=== PATIENT | male | born 1960 | race Caucasian/White ===

== ENCOUNTER 2016-06-25 12:30 | Inpatient (IN) | payer MEDICAID ==
--- NOTE | 2016-06-25 12:55 | CPEKG ---
Heart Rate: 90 RR Interval: 667 QRSD Interval: 148 QT Interval: 400 QTC Interval: 490 QRS [place]: -132 T Wave [place]: 65 EKG Severity - ABNORMAL ECG - EKG Impression: A-FLUTTER/FIBRILLATION W/ COMPLETE AV BLOCK EKG Impression: RBBB AND LPFB Electronically Signed By: Zackery Cardenas 25-Jun-2016 15:42:32
--- NOTE | 2016-06-25 12:58 | EDPHY ---
HPI/HX/ROS/PE/MDM Narrative: CHIEF COMPLAINT:Diarrhea, shortness of breath. HPI: The patient is a 56-year-old male with a self-reported history of some sort of congenital heart defect who presents with diarrhea, shortness of breath , malaise, and dry mouth since Sunday (6 days). The diarrhea is described as charcoal-colored alternating with green. This is associated with cough and worsening peripheral edema. He reports intermittent chills throughout the week and has had decreased appetite and PO intake. No fever, vomiting, or other complaints. History is somewhat limited. REVIEW OF SYSTEMS: Aside from elements discussed in the HPI, a comprehensive 10-point review of systems was reviewed and is negative. PMH: Congenital heart defect fixed with surgery, "Stage IV Kidney Disease", "former" diabetes, hip replacement. SOCIAL HISTORY: Former smoker, from [place]. PHYSICAL EXAM: General:Patient is alert, in no acute distress. He has an overall look of likely genetic abnormality with relatively small, abnormal head. ENT:Eyes are normal to inspection. ENT inspection normal. Poor dentition. Neck: Normal inspection. Full range of motion. Respiratory:No respiratory distress. Breath sounds normal bilaterally. Cardiovascular: Regular rate and rhythm. Strong peripheral pulses. Normal cap refill. Abdomen:The abdomen is nontender to palpation. There are no peritoneal signs. There are normal bowel sounds. Back: Normal to inspection. No tenderness to palpation. Skin: Normal color. No rash. Warm and dry. Extremities: Bilateral pedal edema and discoloration. Full range of motion. Neuro: Oriented x3. Normal motor function. Normal sensory function. ED Course: An IV was established and labs ordered. Blood cultures drawn and sent to the lab. EKG and chest x-ray obtained. 1L IV saline administered for hydration. Patient's labwork significant for elevated troponin at .064 and elevated BNP at 299. WBC is normal and his influenza swab returned negative from the lab. BUN and creatinine consistent with kidney disease at 121 and 9.1 respectively. The 12 lead EKG was interpreted by myself. See hard copy and/or "tracemaster" electronic copy for interpretation. Study: PA and Lateral Chest X-ray Indication: Shortness of breath, malaise. Results: I viewed the images myself on the PACS system. My interpretation of the images is: no acute cardiopulmonary process. The radiologist interpretation is pending at the time of this dictation. MDM: This patient presents with a variety of nonspecific complaints. His workup indicates acute renal failure which the patient apparently has had in the past. Additionally his troponin is elevated although I suspect this is likely secondary to the renal failure. His EKG is quite abnormal, but based on the chest x-ray he clearly has abnormal anatomy at baseline, so it is difficult to interpret this. I consulted Dr. Scott Alonzo at 3:00 p.m. and he will admit the patient. The patient's potassium is currently within normal range so I do not think he is high risk for cardiac issues from his renal failure at this time. - Data Points Laboratory Results: Laboratory Results 06/25/16 13:03 06/25/16 13:03 06/25/16 06/25/16 06/25/16 13:35 13:03 13:03 WBC RBC Hgb Hct MCV MCH MCHC RDW Plt Count MPV Neut % (Auto) Lymph % (Auto) [place] % (Auto) Eos % (Auto) Baso % (Auto) Nucleat RBC Rel Count Absolute Neuts (auto) Absolute Lymphs (auto) Absolute Monos (auto) Absolute Eos (auto) Absolute Basos (auto) Absolute Nucleated RBC Immature Gran % Immature Gran # PT INR Sodium 136 mEq/L mEq/L (134-144) Potassium 4.4 mEq/L mEq/L (3.5-5.2) Chloride 95 mEq/L L mEq/L (97-110) Carbon Dioxide 11 mEq/l L mEq/l (22-31) Anion Gap 30 mEq/L H mEq/L (8-16) BUN 121 mg/dL H* mg/dL (7-23) Creatinine 9.1 mg/dL H* mg/dL (0.7-1.3) Estimated GFR 6 Glucose 111 mg/dL H mg/dL (70-100) Calcium 6.7 mg/dL L mg/dL (8.5-10.4) Total Bilirubin 0.6 mg/dL mg/dL (0.1-1.4) Conjugated Bilirubin 0.5 mg/dL mg/dL (0.0-0.5) Unconjugated Bilirubin 0.1 mg/dL mg/dL (0.0-1.1) AST 67 IU/L H IU/L (17-59) ALT 69 IU/L IU/L (21-72) Alkaline Phosphatase 70 IU/L IU/L (38-126) Troponin I 0.064 ng/mL H ng/mL (0-0.034) NT-Pro-B Natriuret Pep 299 pg/mL H pg/mL (0-125) Total Protein 8.0 g/dL g/dL (6.3-8.2) Albumin 4.7 g/dL g/dL (3.5-5.0) Salicylates Pending Influenza Typ A,B (DFA) NEGATIVE FOR FLU (NEGATIVE) 06/25/16 06/25/16 13:03 13:03 WBC 7.49 10^3/uL 10^3/uL (3.80-9.50) RBC 4.93 10^6/uL 10^6/uL (4.40-6.38) Hgb 18.2 g/dL H g/dL (13.7-17.5) Hct 49.9 % % (40.0-51.0) MCV 101.2 fL H fL (81.5-99.8) MCH 36.9 pg H pg (27.9-34.1) MCHC 36.5 g/dL g/dL (32.4-36.7) RDW 13.2 % % (11.5-15.2) Plt Count 98 10^3/uL L 10^3/uL (150-400) MPV 10.6 fL fL (8.7-11.7) Neut % (Auto) 77.0 % H % (39.3-74.2) Lymph % (Auto) 12.3 % L % (15.0-45.0) [place] % (Auto) 10.1 % % (4.5-13.0) Eos % (Auto) 0.0 % L % (0.6-7.6) Baso % (Auto) 0.1 % L % (0.3-1.7) Nucleat RBC Rel Count 0.0 % % (0.0-0.2) Absolute Neuts (auto) 5.76 10^3/uL 10^3/uL (1.70-6.50) Absolute Lymphs (auto) 0.92 10^3/uL L 10^3/uL (1.00-3.00) Absolute Monos (auto) 0.76 10^3/uL 10^3/uL (0.30-0.80) Absolute Eos (auto) 0.00 10^3/uL L 10^3/uL (0.03-0.40) Absolute Basos (auto) 0.01 10^3/uL L 10^3/uL (0.02-0.10) Absolute Nucleated RBC 0.00 10^3/uL 10^3/uL (0-0.01) Immature Gran % 0.5 % % (0.0-1.1) Immature Gran # 0.04 10^3/uL 10^3/uL (0.00-0.10) PT 13.3 SEC SEC (12.0-15.0) INR 1.02 (0.83-1.16) Sodium Potassium Chloride Carbon Dioxide Anion Gap BUN Creatinine Estimated GFR Glucose Calcium Total Bilirubin Conjugated Bilirubin Unconjugated Bilirubin AST ALT Alkaline Phosphatase Troponin I NT-Pro-B Natriuret Pep Total Protein Albumin Salicylates Influenza Typ A,B (DFA) Medications Given: Discontinued Medications Sodium Chloride (Ns) 1,000 mls @ 0 mls/hr IV ONCE ONE PRN Reason: Wide Open Stop: 06/25/16 13:11 Last Admin: 06/25/16 13:40 Dose: 1,000 mls General Time Seen by Provider: 06/25/16 12:54 Initial Vital Signs: Initial Vital Signs Temperature (C) 36.4 C 06/25/16 12:37 Heart Rate 92 06/25/16 12:37 Respiratory Rate 22 H 06/25/16 12:37 Blood Pressure 83/49 L 06/25/16 12:37 O2 Sat (%) 93 06/25/16 12:37 O2 Delivery Mode Room Air Allergies/Adverse Reactions: Penicillins Allergy (Verified 06/25/16 12:41) Home Medications: Medication Instructions Recorded Aspirin EC [Aspirin EC 81 mg (*)] 81 mg PO DAILY 06/25/16 Chlorthalidone [Chlorthalidone 25 25 mg PO DAILY 06/25/16 mg (*)] ENALAPRIL MALEATE 5 mg PO DAILY 06/25/16 Levothyroxine Sodium [Tirosint] 50 mcg PO DAILY 06/25/16 SIMVASTATIN [Zocor] 20 mg PO HS 06/25/16 Departure - Departure Disposition: [facility] Inpatient Acute Clinical Impression: Elevated troponin, Renal failure, Hypocalcemia Condition: Fair Report Scribed for: Norm Valdivia Report Scribed by: Lopez Garcia Date of Report: 06/25/16 Time of Report: 12:57
[2016-06-25] MEDS ORDERED: NS 1,000 ML IV ONE ×2 (13:10→15:50)
[2016-06-25 13:14] LABS: ADD DIFF? NO; ADD MORPH? NO; ADD SCAN? YES; FRAGMENT RBC FLAG 0 (0-99); LEFT SHIFT FLG 0 (0-99); LIPEMIA HEMOLYSIS FLAG 90 (0-99); PLATELET CLUMPS FLAG 0 (0-99)
[2016-06-25 13:17] LABS: % IMMATURE GRANULYOCYTES 0.5 % (0.0-1.1); ABSOLUTE IMMATURE GRANULOCYTES 0.04 10^3/uL (0.00-0.10); HEMATOCRIT 49.9 % (40.0-51.0); HEMOGLOBIN 18.2 g/dL (13.7-17.5); MEAN CELL HEMOGLOBIN 36.9 pg (27.9-34.1); MEAN CELL HEMOGLOBIN CONCENTR. 36.5 g/dL (32.4-36.7); MEAN CELL VOLUME 101.2 fL (81.5-99.8); MEAN PLATELET VOLUME 10.6 fL (8.7-11.7); PLATELET COUNT 98 10^3/uL (150-400); RED BLOOD CELL COUNT 4.93 10^6/uL (4.40-6.38); RED CELL DISTRIBUTION WIDTH 13.2 % (11.5-15.2)
[2016-06-25 13:22] LABS: ATYPICAL LYMPHOCYTE FLAG 180 (0-99)
[2016-06-25 13:23] LABS: INR 1.02 (0.83-1.16); PROTIME(PATIENT) 13.3 SEC (12.0-15.0)
[2016-06-25 13:38] LABS: ALANINE AMINOTRANSFERASE 69 IU/L (21-72); ALBUMIN 4.7 g/dL (3.5-5.0); ALKALINE PHOSPHATASE 70 IU/L (38-126); ANION GAP 30 mEq/L (8-16); ASPARTATE AMINOTRANSFERASE 67 IU/L (17-59); BILIRUBIN,TOTAL 0.6 mg/dL (0.1-1.4); BILIRUBIN-CONJUGATED 0.5 mg/dL (0.0-0.5); BILIRUBIN-UNCONJUGATED 0.1 mg/dL (0.0-1.1); CALCIUM 6.7 mg/dL (8.5-10.4); CARBON DIOXIDE 11 mEq/l (22-31); CHLORIDE 95 mEq/L (97-110); CREATININE 9.1 mg/dL (0.7-1.3); GLOMERULAR FILTRATION RATE 6; GLUCOSE 111 mg/dL (70-100); POTASSIUM 4.4 mEq/L (3.5-5.2); SODIUM 136 mEq/L (134-144)
[2016-06-25 13:50] LABS: SCAN NEGATIVE; TROPONIN I 0.064 ng/mL (0-0.034)
[2016-06-25] MEDS ORDERED: ONDANSETRON 4 MG/2 ML VIAL IVP PRN (16:07)
[2016-06-25] MEDS ORDERED: ACETAMINOPHEN 325 MG TAB PO PRN (16:07)
[2016-06-25 16:17] LABS: SALICYLATE < 1.0 mg/dL (2.0-20.0)
--- NOTE | 2016-06-25 16:53 | GHP ---
[f rep st] HISTORY AND PHYSICAL DATE OF ADMISSION: 06/25/2016 CHIEF COMPLAINT: Diarrhea, shortness of breath, and leg swelling. HPI: This is a 56-year-old male with a history of congenital heart disease and stage 4 chronic kidn ey disease, who presented to the emergency department today with diarrhea, shortness of breath, and leg swelling. The patient states the diarrhea started Sunday and he has been having up to 10 stools per day that a re described as charcoal in color. He denies any recent antibiotic use. He denies any foreign andie el. He denies any sick contacts. He has had some subjective fevers and chills. The patient reports shortness of breath with exertion. He does have orthopnea. He denies any chest pain. He has been having some swelling of his legs. He is on chlorthalidone and lisinopril at [facility], which he has not been taking since Sunday. He denies any NSAID use. He has been making urine. He denies any aspirin use. PAST MEDICAL AND SURGICAL HISTORY: 1. Congenital heart disease requiring corrective surgery in the 1970s. 2. Left total hip arthroplasty. 3. Hypertension. 4. Hypercholesterolemia. 5. Stage 4 chronic kidney disease. 6. Hernia repair. HOME MEDICATIONS: Simvastatin, enalapril, chlorthalidone. ALLERGIES: Penicillin causes nausea and vomiting. SOCIAL HISTORY: Patient is from [place], but moved to [place] to be close to his family 2 years ag o. He smokes occasionally. He denies any current alcohol use or illicit drug use. FAMILY HISTORY: Significant for diabetes mellitus in his mother. REVIEW OF SYSTEMS: Comprehensive 10-point review of systems was done and was negative, except for a s mentioned in the HPI. PHYSICAL EXAM: VITAL SIGNS: Blood pressure 87/51, pulse 74, respiratory rate 15, O2 sat 96% on mica m air, temperature afebrile. GENERAL: Ill-appearing, but no acute distress. HEAD: Normocephalic, atraumatic. EYES: PERRLA. MOUTH: Moist mucous membranes. NECK: Supple. No lymphadenopathy. CARDIOVASCULAR: S1, S2. No JVD. Trace lower extremity edema. PULMONARY: Lungs are clear. No wh eezes, rales, or rhonchi. ABDOMEN: Soft, nontender, nondistended. No guarding or rebound tenderne ss. Normoactive bowel sounds. EXTREMITIES: No clubbing or cyanosis. NEURO: Cranial nerves 2 thr ough 12 grossly intact. No focal motor or sensory deficits. SKIN: There is slight erythema of maximino ateral lower extremities. DIAGNOSTICS: WBC 7.49, hemoglobin 18.2, hematocrit 49.9, platelets 98. PT 13.3, INR 1.02. Sodium 136, potassium 4.4, chloride 95, CO2 of 11, BUN 121, creatinine 9.1, glucose 111, anion gap is 30. AST 67, ALT 69. Troponin indeterminate at 0.064. BNP 299. Influenza negative. Chest x-ray, which I visualized and personally interpreted, shows hyperinflation with a right-sided aortic arch. EKG, which I visualized and personally interpreted, was read by the computer as atrial flutter/fibrillat ion with complete AV block. However, on my review, the rate does appear to be regular and no obviou s P waves, but this could be a result of his congenital heart disease. There is T wave inversion in V1 through V3. There are no pathologic Q waves. No obvious ST elevation. ASSESSMENT AND PLAN: This is a 56-year-old male with history of congenital heart disease and stage 4 chronic kidney disease, presenting with: 1. Diarrhea. 2. Acute kidney injury on reported chronic kidney disease, most likely exacerbated by dehydration a nd hypovolemia in the setting of diarrhea. 3. Anion gap metabolic acidosis, most likely due to uremia. 4. Indeterminate troponin. 5. History of hypertension. 6. History of congenital heart disease with suspected underlying chronic congestive heart failure g iven his orthopnea. PLAN: 1. Admit to telemetry. 2. Check salicylate level. 3. GI pathogen panel to evaluate for underlying cause of diarrhea. 4. Renal ultrasound. 5. Urine lytes to further confirm the diagnosis of prerenal azotemia. 6. Nephrology has been consulted. I have discussed the case with Dr. rGiffith, who has recommended sta rting a bicarbonate drip, which I have ordered. 7. Monitor for signs and symptoms of volume overload in the setting of his suspected underlying con gestive heart failure. 8. Attempt to obtain recent echo results from his primary care provider. 9. Cycle troponins. Patient is high risk and once again will be admitted to telemetry. We will order heparin for DVT pr ophylaxis. He requests to be DNR status and would not be interested in hemodialysis at this time if it were needed to prevent him from dying. /[id number]/MODL
[2016-06-25] MEDS ORDERED: LIDOCAINE 2% JELLY 20 ML (UROJECT) ONE (18:13)
[2016-06-25 18:55] LABS: ANION GAP 21 mEq/L (8-16); CALCIUM 6.1 mg/dL (8.5-10.4); CARBON DIOXIDE 13 mEq/l (22-31); CHLORIDE 102 mEq/L (97-110); CREATININE 6.4 mg/dL (0.7-1.3); GLOMERULAR FILTRATION RATE 9; GLUCOSE 85 mg/dL (70-100); POTASSIUM 3.8 mEq/L (3.5-5.2); SODIUM 136 mEq/L (134-144)
[2016-06-25 19:05] LABS: TROPONIN I 0.048 ng/mL (0-0.034)
[2016-06-25 19:11] LABS: COLOR YELLOW; LEUKOCYTE ESTERASE,URINE NEGATIVE (NEGATIVE); NITRITE,URINE NEGATIVE (NEGATIVE)
[2016-06-25 19:14] LABS: BACTERIA TRACE /hpf (NONE SEEN); MUCUS TRACE /lpf (NONE-1+)
[2016-06-25] MEDS: HEPARIN 5,000 UNIT/0.5 ML SYR SC SCH (21:38)
[2016-06-25] MEDS: SODIUM BICARBONATE 150 MEQ in D5W 1,000 ML IV SCH (21:41)
[2016-06-25] MEDS: VANCOMYCIN 125 MG/2.5 ML UDL PO SCH (21:45)
[2016-06-26 05:00] LABS: % IMMATURE GRANULYOCYTES 0.3 % (0.0-1.1); ABSOLUTE IMMATURE GRANULOCYTES 0.02 10^3/uL (0.00-0.10); ADD DIFF? NO; ADD MORPH? NO; ADD SCAN? YES; FRAGMENT RBC FLAG 0 (0-99); HEMATOCRIT 39.8 % (40.0-51.0); HEMOGLOBIN 14.8 g/dL (13.7-17.5); LEFT SHIFT FLG 0 (0-99); LIPEMIA HEMOLYSIS FLAG 90 (0-99); MEAN CELL HEMOGLOBIN 36.5 pg (27.9-34.1); MEAN CELL HEMOGLOBIN CONCENTR. 37.2 g/dL (32.4-36.7); MEAN PLATELET VOLUME 10.4 fL (8.7-11.7); PLATELET CLUMPS FLAG 20 (0-99); PLATELET COUNT 86 10^3/uL (150-400); RED BLOOD CELL COUNT 4.06 10^6/uL (4.40-6.38); RED CELL DISTRIBUTION WIDTH 12.8 % (11.5-15.2)
[2016-06-26 05:04] LABS: ATYPICAL LYMPHOCYTE FLAG 170 (0-99)
[2016-06-26 05:20] LABS: ANION GAP 14 mEq/L (8-16); CARBON DIOXIDE 18 mEq/l (22-31); CHLORIDE 107 mEq/L (97-110); CREATININE 3.2 mg/dL (0.7-1.3); GLOMERULAR FILTRATION RATE 20; GLUCOSE 145 mg/dL (70-100); POTASSIUM 2.9 mEq/L (3.5-5.2); SODIUM 139 mEq/L (134-144)
[2016-06-26 05:25] LABS: CALCIUM 5.7 mg/dL (8.5-10.4)
[2016-06-26 05:29] LABS: TROPONIN I 0.051 ng/mL (0-0.034)
[2016-06-26 05:31] LABS: SCAN NEGATIVE
[2016-06-26] MEDS: HEPARIN 5,000 UNIT/0.5 ML SYR SC SCH ×3 (05:38→20:57)
[2016-06-26] MEDS: VANCOMYCIN 125 MG/2.5 ML UDL PO SCH ×3 (05:38→15:23)
[2016-06-26] MEDS: SODIUM BICARBONATE 150 MEQ in D5W 1,000 ML IV SCH ×2 (05:39→20:56)
[2016-06-26] MEDS ORDERED: PROTOCOL MAGNESIUM 1 DOSE IV PRN (06:08)
[2016-06-26] MEDS ORDERED: PROTOCOL CALCIUM 1 DOSE IV PRN (06:08)
[2016-06-26] MEDS ORDERED: PROTOCOL POTASSIUM 1 DOSE MISC PRN (06:08)
[2016-06-26] MEDS ORDERED: POTASSIUM CL 10 MEQ TAB PO ONE ×4 (06:17→21:00)
--- NOTE | 2016-06-26 06:24 | CPEKG ---
Heart Rate: 74 RR Interval: 811 QRSD Interval: 156 QT Interval: 432 QTC Interval: 480 P [place]: 0 QRS [place]: 205 T Wave [place]: 51 EKG Severity - ABNORMAL ECG - EKG Impression: COMPLETE AV BLOCK WITH WIDE QRS COMPLEX Electronically Signed By: Russ Juan 26-Jun-2016 07:46:50
[2016-06-26] MEDS ORDERED: LEVOTHYROXINE SODIUM 50 MCG PO SCH (09:00)
--- NOTE | 2016-06-26 09:19 | PDGENHP ---
History and Physical - Chief Complaint RICARDA on CKD - History of Present Illness Mr. Parrish is a 56 yo M with h/o CKD stage IV, HTN, who presented yesterday to ED with complaints of diarrhea. Pt had moved here from [place] 2 years ago to be closer to family. He states he had seen a regulatory services consultant there just before moving, was told he had CKD stage IV, but does not know his baseline Cr. He states he was not interested in HD if needed, had talked about it before and states it would simply take up too much time, would not be interested even if that was the only way to keep him alive. He has not followed up, does see a PCP here at [facility] who has asked him to see a regulatory services consultant but was not interested. Last Sunday, he started to have some flu like symptoms and then started to have signficant diarrhea, over 10-20 BMs daily. In that time, he had hardly been eating or drinking, denies N/V but had no appetite. On presentation, he was hypotensive and noted to have Cr up to 9, already down to 3 with IVFs. History Information - Allergies/Home Medication List Allergies/Adverse Reactions: Penicillins Allergy (Verified 06/25/16 12:41) Home Medications: Aspirin EC [Aspirin EC 81 mg (*)] 81 mg PO DAILY 06/25/16 [Last Taken 06/20/16] Chlorthalidone [Chlorthalidone 25 mg (*)] 25 mg PO DAILY 06/25/16 [Last Taken ] ENALAPRIL MALEATE 5 mg PO DAILY 06/25/16 [Last Taken 06/20/16] Levothyroxine Sodium [Tirosint] 50 mcg PO DAILY 06/25/16 [Last Taken 06/20/16] SIMVASTATIN [Zocor] 20 mg PO HS 06/25/16 [Last Taken 06/20/16] I have personally reviewed and updated: medical history - Past Medical History Additional medical history: Congential heart disease requiring corrective surery at age 10. L total hip arthroplasty. HTN. HLD. CKD stage IV. Hernia repair. h/o DM, managed with diet - Surgical History Additional surgical history: as above - Family History Additional family history: mother with DM - Social History Smoking Status: Current every day smoker Review of Systems ROS: 10pt was reviewed & negative except for what was stated in HPI & below Physical Exam Temp Pulse Resp BP Pulse Ox 37.4 C 84 17 94/51 L 87 L 06/26/16 07:43 06/26/16 07:43 06/26/16 07:43 06/26/16 07:43 06/26/16 07:43 Constitutional: no apparent distress, appears nourished, not in pain Eyes: PERRL, anicteric sclera, EOMI Ears, Nose, Mouth, Throat: moist mucous membranes, hearing normal Cardiovascular: regular rate and rhythym, edema (trace edema BLE) Respiratory: no respiratory distress, clear to auscultation Gastrointestinal: normoactive bowel sounds, soft, non-tender abdomen Skin: warm, other (venostasis changes in lower extremities), No rash Musculoskeletal: no muscle tenderness, normal joint ROM Neurologic: AAOx3, CN II-XII Intact, No asterixes Psychiatric: interacting appropriately, not anxious, not encephalopathic Lab Data & Imaging Review 06/26/16 04:36 06/26/16 04:36 WBC 5.98 10^3/uL (3.80-9.50) 06/26/16 04:36 RBC 4.06 10^6/uL (4.40-6.38) L 06/26/16 04:36 Hgb 14.8 g/dL (13.7-17.5) 06/26/16 04:36 Hct 39.8 % (40.0-51.0) L D 06/26/16 04:36 MCV 98.0 fL (81.5-99.8) 06/26/16 04:36 MCH 36.5 pg (27.9-34.1) H 06/26/16 04:36 MCHC 37.2 g/dL (32.4-36.7) H 06/26/16 04:36 RDW 12.8 % (11.5-15.2) 06/26/16 04:36 Plt Count 86 10^3/uL (150-400) L 06/26/16 04:36 MPV 10.4 fL (8.7-11.7) 06/26/16 04:36 Neut % (Auto) 73.4 % (39.3-74.2) 06/26/16 04:36 Lymph % (Auto) 15.2 % (15.0-45.0) 06/26/16 04:36 [place] % (Auto) 10.9 % (4.5-13.0) 06/26/16 04:36 Eos % (Auto) 0.0 % (0.6-7.6) L 06/26/16 04:36 Baso % (Auto) 0.2 % (0.3-1.7) L 06/26/16 04:36 Nucleat RBC Rel Count 0.0 % (0.0-0.2) 06/26/16 04:36 Absolute Neuts (auto) 4.39 10^3/uL (1.70-6.50) 06/26/16 04:36 Absolute Lymphs (auto) 0.91 10^3/uL (1.00-3.00) L 06/26/16 04:36 Absolute Monos (auto) 0.65 10^3/uL (0.30-0.80) 06/26/16 04:36 Absolute Eos (auto) 0.00 10^3/uL (0.03-0.40) L 06/26/16 04:36 Absolute Basos (auto) 0.01 10^3/uL (0.02-0.10) L 06/26/16 04:36 Absolute Nucleated RBC 0.00 10^3/uL (0-0.01) 06/26/16 04:36 Immature Gran % 0.3 % (0.0-1.1) 06/26/16 04:36 Immature Gran # 0.02 10^3/uL (0.00-0.10) 06/26/16 04:36 PT 13.3 SEC (12.0-15.0) 06/25/16 13:03 INR 1.02 (0.83-1.16) 06/25/16 13:03 Sodium 139 mEq/L (134-144) 06/26/16 04:36 Potassium 2.9 mEq/L (3.5-5.2) L 06/26/16 04:36 Chloride 107 mEq/L (97-110) 06/26/16 04:36 Carbon Dioxide 18 mEq/l (22-31) L 06/26/16 04:36 Anion Gap 14 mEq/L (8-16) 06/26/16 04:36 BUN 84 mg/dL (7-23) H 06/26/16 04:36 Creatinine 3.2 mg/dL (0.7-1.3) H 06/26/16 04:36 Estimated GFR 20 06/26/16 04:36 Glucose 145 mg/dL (70-100) H 06/26/16 04:36 Calcium 5.7 mg/dL (8.5-10.4) L* 06/26/16 04:36 Magnesium 2.1 mg/dL (1.6-2.3) 06/26/16 04:36 Total Bilirubin 0.6 mg/dL (0.1-1.4) 06/25/16 13:03 Conjugated Bilirubin 0.5 mg/dL (0.0-0.5) 06/25/16 13:03 Unconjugated Bilirubin 0.1 mg/dL (0.0-1.1) 06/25/16 13:03 AST 67 IU/L (17-59) H 06/25/16 13:03 ALT 69 IU/L (21-72) 06/25/16 13:03 Alkaline Phosphatase 70 IU/L (38-126) 06/25/16 13:03 Troponin I 0.051 ng/mL (0-0.034) H 06/26/16 04:36 NT-Pro-B Natriuret Pep 299 pg/mL (0-125) H 06/25/16 13:03 Total Protein 8.0 g/dL (6.3-8.2) 06/25/16 13:03 Albumin 4.7 g/dL (3.5-5.0) 06/25/16 13:03 Urine Color YELLOW 06/25/16 18:25 Urine Appearance CLEAR 06/25/16 18:25 Urine pH 5.0 (5.0-7.5) 06/25/16 18:25 Ur Specific [place] 1.010 (1.002-1.030) 06/25/16 18:25 Urine Protein 1+ (NEGATIVE) H 06/25/16 18:25 Urine Ketones TRACE (NEGATIVE) H 06/25/16 18:25 Urine Blood NEGATIVE (NEGATIVE) 06/25/16 18:25 Urine Nitrate NEGATIVE (NEGATIVE) 06/25/16 18:25 Urine Bilirubin NEGATIVE (NEGATIVE) 06/25/16 18:25 Urine Urobilinogen NEGATIVE EU (0.2-1.0) 06/25/16 18:25 Ur Leukocyte Esterase NEGATIVE (NEGATIVE) 06/25/16 18:25 Urine RBC 1-3 /hpf (0-3) 06/25/16 18:25 Urine WBC 1-3 /hpf (0-3) 06/25/16 18:25 Ur Epithelial Cells TRACE /lpf (NONE-1+) 06/25/16 18:25 Urine Bacteria TRACE /hpf (NONE SEEN) H 06/25/16 18:25 Hyaline Casts 5-15 /lpf (0-1) 06/25/16 18:25 Urine Mucus TRACE /lpf (NONE-1+) 06/25/16 18:25 Urine Osmolality 347 mosmo/kg (300-900) 06/25/16 18:25 Ur Random Creatinine 93.5 mg/dL 06/25/16 18:25 Ur Random Sodium 53 mEq/L (30-90) 06/25/16 18:25 Urine Glucose NEGATIVE (NEGATIVE) 06/25/16 18:25 Salicylates < 1.0 mg/dL (2.0-20.0) L 06/25/16 13:03 Influenza Typ A,B (DFA) NEGATIVE FOR FLU (NEGATIVE) 06/25/16 13:35 Assessment & Plan Assessment: Assessment/Plan: RICARDA on CKD stage IV: unknown baseline. Cr 9.1 on presentation, down to 3.2 already with fluids, likely prerenal injury with diarrhea and poor po intake. - Continue IVFs with bicarb for now. - Agree with holding chlorthalidone and ACEI for now. - No need for HD at this time. That being said, pt is not interested in HD or f/u with regulatory services consultant at this time, will continue to discuss with him. - Avoid MOM, morphine, demerol, NSAIDs, contrast, aminoglycosides, fleets, and other nephrotoxins. - I discussed with pt to avoid NSAID use with his kidney disease. - Will continue to monitor renal parameters. Hypokalemia: likely secondary to diarrhea as well as correction of acidosis. - Pt given KCl 40meq x1 this am. - Would recheck today before giving additional supplementation. Metabolic acidosis: likely due to RICARDA as well as bicarb losses from diarrhea. Bicarb improved from 11 to 18. - Continue IVFs with bicarb. - Will continue to monitor. Hypotension: likely secondary to intravascular depletion, agree with holding antihypertensive medications for now and giving IVFs. Thank you for the interesting consult. Nephrology will continue to follow, please call if you have any additional questions or concerns.
[2016-06-26] MEDS: LEVOTHYROXINE 50 MCG TAB PO SCH (09:58)
[2016-06-26 10:28] LABS: IONIZED CALCIUM 0.83 MMOL/L (1.12-1.30)
[2016-06-26] MEDS ORDERED: CALCIUM GLUCONATE 2 GM in NS 50 ML IV ONE (11:57)
--- NOTE | 2016-06-26 15:45 | HOSPPROG ---
Hospitalist Progress Note Assessment/Plan: * Acute on chronic renal failure * prerenal on top of chronic kidney disease * creatinine better with fluids * acute diarrheal illness * C. diff along with enteropathogenic e.coli * discussed with Infectious Disease - difficult to determine which is causing his illness. no recent antibiotics or hospitalizations. * Infectious Disease will see patient * mild troponin elevation * due to renal failure * thrombocytopenia * question chronic * history of congenital heart disease status post surgery Subjective: still having diarrhea. Objective: Vital Signs Temp Pulse Resp BP Pulse Ox 37.4 C 84 17 94/51 L 87 L 06/26/16 07:43 06/26/16 07:43 06/26/16 07:43 06/26/16 07:43 06/26/16 07:43 Microbiology 06/26/16 14:15 Fecal Leukocyte Stain - Final Stool 06/25/16 18:00 Gastrointestinal Tract Panel (PCR) - Final Stool Clostridium Difficile Detected E.coli Enteropathogenic(Epec) Laboratory Results 06/26/16 04:36 06/26/16 04:36 06/25/16 06/26/16 06/27/16 05:59 05:59 05:59 Intake Total 3550 Output Total 1750 Balance 1800 PT 13.3 SEC (12.0-15.0) 06/25/16 13:03 INR 1.02 (0.83-1.16) 06/25/16 13:03 - Physical Exam Constitutional: no apparent distress, appears nourished, not in pain Eyes: anicteric sclera, EOMI Ears, Nose, Mouth, Throat: moist mucous membranes, hearing normal Cardiovascular: regular rate and rhythym, no murmur, rub, or gallop Respiratory: no respiratory distress, no rales or rhonchi, clear to auscultation Gastrointestinal: normoactive bowel sounds, soft, non-tender abdomen, no palpable masses Skin: warm Neurologic: AAOx3 Psychiatric: interacting appropriately, not anxious, not encephalopathic, thought process linear ICD10 Worksheet Patient Problems: Problems Problem Status Onset Elevated troponin Acute Hypocalcemia Acute Renal failure Acute
[2016-06-26 18:22] LABS: POTASSIUM 3.1 mEq/L (3.5-5.2)
--- NOTE | 2016-06-27 03:01 | GCON ---
[f rep st] CONSULTATION REFERRING PHYSICIAN: Chaparro Helms MD REASON FOR REFERRAL: Diarrhea with positive stool PCR findings. HISTORY OF PRESENT ILLNESS: Patient is a 56-year-old male, who [facility], through the emergency room secondary to severe dehydration and acute renal failu re. The patient moved here to [place] from [facility] a couple of years ago. He knew when he w as in [facility] that he had chronic renal disease, but refused specialty care at that point. Lenin paniagua was seen at [facility] here in [place] and also was recommended for renal evaluation, which he refuse d. Apparently, the patient began feeling slightly chilled and ill 1 week ago. He began having diar iesha, which waxed and waned, but became fairly profuse by the end of the week. He was unable to mely p up with oral intake of fluids, and was brought into [facility] emergency room yester day. The patient had laboratory work done, which showed evidence of hemoconcentration, but no clear leukocytosis. The patient also had serum chemistries done, which showed a creatinine of 9.1 on adm ission. This has since recovered down to a creatinine of 3.2 with hydration. The patient was negat dereck for influenza. Stool PCR was done on 06/25/2016, which showed both C difficile as well as E col i enteropathogenic subtype. We are consulted to help determine the significance of these findings. The patient denies any abdominal pain. He continues to have 15 to 20 stools today per. PAST MEDICAL HISTORY: 1. Chronic kidney disease, not yet worked up. 2. Congenital heart disease requiring corrective surgery. 3. Hypertension. 4. Hyperlipidemia. PAST SURGICAL HISTORY: 1. Status post remote corrective cardiac surgery as a child. 2. Status post left total hip arthroplasty. 3. Status post hernia repair. ANTIBIOTICS: Oral vancomycin. ALLERGIES: Penicillin. SOCIAL HISTORY: Patient is from [place], [place], but moved to [place] 2 years ago. He u ses occasional cigarettes. Denies any alcohol or drug use. FAMILY HISTORY: Reviewed but noncontributory. REVIEW OF SYSTEMS: Other than that detailed above in history of present illness comprehensive 10-sy stem review is negative. PHYSICAL EXAMINATION: VITAL SIGNS: Temperature maximum is 37, temp current is 37, 2. Heart rate i s 74, respiratory rate is 16, blood pressure is 99/57. GENERAL: The patient is a well-formed, well -nourished, middle-aged male in no acute distress. He is not toxic in appearance. He is alert and oriented x3. He has a pleasant demeanor. HEENT: Normocephalic for age. Atraumatic. No scleral i cterus. No oral lesion or drainage from the nares. Eyes: Lids and conjunctivae within normal limi ts. Pupils are equal and round bilaterally. NECK: Supple. No meningismus. LUNGS: Clear to ausc ultation bilaterally with good effort. HEART: Regular rate and rhythm. No murmur, rub, or gallop noted. ABDOMEN: Soft. Nontender. No masses. SKIN: Warm and dry to the touch. No rash or lesio n seen. MUSCULOSKELETAL: No muscle tenderness is noted. No joint line effusion or arthritis is se en. NEURO: Cranial nerves 2 through 12 seem to be intact. Peripheral sensation seems intact in th e extremities. LABORATORY DATA: The patient's CBC dated 06/28/2016, shows a white blood cell count of 5.98, hemogl obin of 14.8, hematocrit 39.8, platelet count of 86. Differential shows 73% segmented neutrophils, 15% lymphocytes, and 11% monocytes. Serum chemistries on 06/26/2016, show a sodium of 139, potassiu m of 2.9, chloride of 107, bicarbonate of 18, BUN of 84, creatinine of 3.2. Urinalysis is within no rmal limits. Influenza DFA is negative. MICROBIOLOGIC DATA: The patient has stool for multiplex PCR showing C difficile, as well as intrapa thogenic E coli. Fecal leukocyte stain is negative. ASSESSMENT: Diarrhea, unclear etiology. Infectious etiology is possible, although noninfectious et iology should be included in the differential at this point, too. The multiplex PCR obviously finds the presence of organisms which may or may not be responsible for the pathology. Clostridium diffi cile is present in the patient's stool sample, although lack of leukocytosis and lack of white blood cells in the stool would argue against this being Clostridium difficile colitis. He also has no an tecedent antibiotic use, which would be a major risk factor. Enteropathogenic Escherichia coli is t ypically seen as cause of illness in small children. It has been described in adults, but is not pa rticularly virulent. It is a self-limited disease and does not warrant antibiotic treatment. It is unclear whether this is truly the pathogen in this case, although it may be. Absent that, I do not have any other infectious explanations for what could be transpired. Typical causes of viral gastr oenteritis would likely be picked up in the multiplex PCR. Will continue to give patient supportive care, but I suspect we could probably discontinue the oral vancomycin at this point. PLAN: 1. Discontinue oral vancomycin. 2. Follow clinical course. /[id number]/MODL
[2016-06-27 04:33] LABS: IONIZED CALCIUM 0.89 MMOL/L (1.12-1.30)
[2016-06-27 04:39] LABS: % IMMATURE GRANULYOCYTES 0.5 % (0.0-1.1); ABSOLUTE IMMATURE GRANULOCYTES 0.03 10^3/uL (0.00-0.10); ADD DIFF? NO; ADD MORPH? NO; ADD SCAN? YES; FRAGMENT RBC FLAG 0 (0-99); HEMATOCRIT 40.9 % (40.0-51.0); HEMOGLOBIN 14.8 g/dL (13.7-17.5); LEFT SHIFT FLG 0 (0-99); LIPEMIA HEMOLYSIS FLAG 90 (0-99); MEAN CELL HEMOGLOBIN 35.5 pg (27.9-34.1); MEAN CELL HEMOGLOBIN CONCENTR. 36.2 g/dL (32.4-36.7); MEAN CELL VOLUME 98.1 fL (81.5-99.8); MEAN PLATELET VOLUME 10.4 fL (8.7-11.7); PLATELET CLUMPS FLAG 0 (0-99); PLATELET COUNT 86 10^3/uL (150-400); RED BLOOD CELL COUNT 4.17 10^6/uL (4.40-6.38); RED CELL DISTRIBUTION WIDTH 12.6 % (11.5-15.2)
[2016-06-27 04:49] LABS: ATYPICAL LYMPHOCYTE FLAG 180 (0-99)
[2016-06-27 04:50] LABS: ANION GAP 5 mEq/L (8-16); CARBON DIOXIDE 38 mEq/l (22-31); CHLORIDE 100 mEq/L (97-110); GLUCOSE 192 mg/dL (70-100); POTASSIUM 3.1 mEq/L (3.5-5.2); SODIUM 143 mEq/L (134-144)
[2016-06-27 04:51] LABS: CALCIUM 6.5 mg/dL (8.5-10.4); GLOMERULAR FILTRATION RATE > 60; MAGNESIUM 1.9 mg/dL (1.6-2.3)
[2016-06-27 05:21] LABS: SCAN NEGATIVE
[2016-06-27] MEDS ORDERED: POTASSIUM CL 10 MEQ TAB PO ONE ×2 (05:45→20:36)
[2016-06-27] MEDS: LEVOTHYROXINE 50 MCG TAB PO SCH (06:32)
[2016-06-27] MEDS: SODIUM BICARBONATE 150 MEQ in D5W 1,000 ML IV SCH (06:35)
[2016-06-27] MEDS ORDERED: CALCIUM GLUCONATE 2 GM in NS 50 ML IV ONE (06:54)
[2016-06-27] MEDS: HEPARIN 5,000 UNIT/0.5 ML SYR SC SCH ×2 (07:21→14:43)
--- NOTE | 2016-06-27 14:23 | HOSPPROG ---
Hospitalist Progress Note Assessment/Plan: * Acute on ?chronic renal failure * creatinine down down to 1 * not sure of diagnosis of chronic kidney disease * will Fluids today * acute diarrheal illness * C. diff along with enteropathogenic e.coli * infectious Disease input appreciated. vancomycin discontinued. will watch off antibiotics * diarrhea seem to be better * mild troponin elevation * due to renal failure * thrombocytopenia * question chronic * history of congenital heart disease status post surgery Subjective: seems to be feeling better. Diarrhea seems to be better overnight Objective: Vital Signs Temp Pulse Resp BP Pulse Ox 36.9 C 66 18 101/58 L 94 06/27/16 11:38 06/27/16 11:38 06/27/16 11:38 06/27/16 11:38 06/27/16 11:38 Microbiology 06/26/16 14:15 Fecal Leukocyte Stain - Final Stool Laboratory Results 06/27/16 04:24 06/27/16 04:24 06/26/16 06/27/16 06/28/16 05:59 05:59 05:59 Intake Total 3550 2250 70 Output Total 1750 5 Balance 1800 225 70 PT 13.3 SEC (12.0-15.0) 06/25/16 13:03 INR 1.02 (0.83-1.16) 06/25/16 13:03 - Physical Exam Constitutional: no apparent distress, appears nourished, not in pain Eyes: anicteric sclera, EOMI Ears, Nose, Mouth, Throat: moist mucous membranes, hearing normal Cardiovascular: regular rate and rhythym Gastrointestinal: normoactive bowel sounds, soft, non-tender abdomen, no palpable masses Neurologic: AAOx3 Psychiatric: interacting appropriately, not anxious, not encephalopathic, thought process linear ICD10 Worksheet Patient Problems: Problems Problem Status Onset C. difficile diarrhea Acute ~06/25/16 Elevated troponin Acute Hypocalcemia Acute Renal failure Acute
--- NOTE | 2016-06-27 14:56 | SOAPPROG ---
SOAP Progress Note Assessment/Plan: Assessment: RICARDA resolved Plan: Renal signing off 06/27/16 14:54 Subjective: Spirits good denies pain nausea vomiting or SOB Objective: Vital Signs Temp Pulse Resp BP Pulse Ox 36.9 C 66 18 101/58 L 94 06/27/16 11:38 06/27/16 11:38 06/27/16 11:38 06/27/16 11:38 06/27/16 11:38 Microbiology 06/26/16 14:15 Fecal Leukocyte Stain - Final Stool Laboratory Results 06/27/16 04:24 06/27/16 04:24 06/26/16 06/27/16 06/28/16 05:59 05:59 05:59 Intake Total 3550 2250 70 Output Total 1750 2025 Balance 1800 225 70 PT 13.3 SEC (12.0-15.0) 06/25/16 13:03 INR 1.02 (0.83-1.16) 06/25/16 13:03 Physical Exam - Physical Exam General Appearance: alert Respiratory: No rales, No rhonchi Cardiac/Chest: regular rate, rhythm, No edema, No gallop, No friction rub Abdomen: other (bs+, nt, nd) Neuro/Psych: alert, normal mood/affect, oriented x 3 ICD10 Worksheet Patient Problems: Problems Problem Status Onset C. difficile diarrhea Acute ~06/25/16 Elevated troponin Acute Hypocalcemia Acute Renal failure Acute
[2016-06-27 20:34] LABS: POTASSIUM 3.4 mEq/L (3.5-5.2)
[2016-06-28 04:32] LABS: IONIZED CALCIUM 0.97 MMOL/L (1.12-1.30)
[2016-06-28 04:54] LABS: CHLORIDE 95 mEq/L (97-110); CREATININE 0.8 mg/dL (0.7-1.3); GLOMERULAR FILTRATION RATE > 60; GLUCOSE 121 mg/dL (70-100); MAGNESIUM 1.7 mg/dL (1.6-2.3); POTASSIUM 4.4 mEq/L (3.5-5.2); SODIUM 145 mEq/L (134-144)
[2016-06-28 05:01] LABS: SPECIMEN HEMOLYSIS 125
[2016-06-28 05:02] LABS: ANION GAP 9 mEq/L (8-16); CARBON DIOXIDE 41 mEq/l (22-31)
[2016-06-28] MEDS: LEVOTHYROXINE 50 MCG TAB PO SCH (05:32)
[2016-06-28 05:38] LABS: % IMMATURE GRANULYOCYTES 0.3 % (0.0-1.1); ABSOLUTE IMMATURE GRANULOCYTES 0.02 10^3/uL (0.00-0.10); ADD DIFF? NO; ADD MORPH? NO; ADD SCAN? YES; FRAGMENT RBC FLAG 0 (0-99); HEMATOCRIT 51.7 % (40.0-51.0); HEMOGLOBIN 18.1 g/dL (13.7-17.5); LEFT SHIFT FLG 0 (0-99); LIPEMIA HEMOLYSIS FLAG 90 (0-99); MEAN CELL HEMOGLOBIN 36.6 pg (27.9-34.1); MEAN CELL VOLUME 104.7 fL (81.5-99.8); MEAN PLATELET VOLUME 10.2 fL (8.7-11.7); PLATELET CLUMPS FLAG 10 (0-99); PLATELET COUNT 108 10^3/uL (150-400); RED BLOOD CELL COUNT 4.94 10^6/uL (4.40-6.38); RED CELL DISTRIBUTION WIDTH 12.9 % (11.5-15.2)
[2016-06-28 05:40] LABS: ATYPICAL LYMPHOCYTE FLAG 240 (0-99)
[2016-06-28 06:06] LABS: SCAN NEGATIVE
[2016-06-28] MEDS ORDERED: MAGNESIUM SULF 1 GM/DEXTROSE 100 ML IV ONE (07:21)
[2016-06-28] MEDS ORDERED: CALCIUM GLUCONATE 50 ML IV ONE (07:21)
[2016-06-28] MEDS: ENOXAPARIN 40 MG/0.4 ML SYR SC SCH (07:52)
--- NOTE | 2016-06-28 16:38 | GDS ---
DISCHARGE DIAGNOSES: 1. Diarrheal illness. 2. Positive Clostridium difficile and Escherichia coli enteropathic PCR, probably not causing his d iarrhea. 3. Probable chronic hypoxic respiratory failure. 4. Possible pulmonary hypertension. 5. Chronic obstructive pulmonary disease. 6. Acute renal failure, secondary to dehydration. HISTORY: This is a 56-year-old male, who did not get much regular medical care, who has a history o f hypertension and also hyperlipidemia, and hypothyroidism. This is a 56-year-old male who does not get a lot of medical care. He presented with severe diarrhea for a week, and was found to have a c reatinine of 9. HOSPITAL COURSE: I was going to give IV fluids. Nephrology was consulted. His creatinine actually improved pretty well, and is now at 0.8. There was some notation of possible chronic kidney diseas e, but he did not seem to have at this point. His stool was positive for C. difficile, as well as e nteropathic E. coli. He was initially treated with vancomycin. Infectious Disease consultation was obtained to sort out which may be causing his disease. They believed that the C. difficile was not the cause of his diarrhea, and enteropathic E. coli, if treated, could make things worse, and so we elected not to treat anything, and discontinue the vancomycin. His diarrhea actually did improve. On day of discharge, his oxygen saturation was 70% on room air. I intended to get a chest x-ray, as well as echocardiogram, as I suspect pulmonary hypertension and untreated COPD. He does have polyc ythemia. However, the patient was adamant that he wanted to leave against medical advice. This pat ient was told that he has high risk of needing to come back and be rehospitalized, or even worse. Lenin paniagua is adamant that he wants to leave, and does not want any home oxygen, although that was ordered fo r him. If he were to take home oxygen, he would not need to sign out against medical advice, but he refuses that. TIME SPENT: Greater than 30 minutes was spent on discharge. /[id number]/MODL
[2016-06-28] MEDS: TIOTROPIUM INHALER 18 MCG/DOSE 5 DOSE/MDI IH SCH (18:12)
[2016-06-28] MEDS: FLUTICASONE/SALMETER 100/50MCG DISKUS IH SCH (22:06)
[2016-06-29] MEDS: LEVOTHYROXINE 50 MCG TAB PO SCH (05:14)
[2016-06-29 05:27] LABS: IONIZED CALCIUM 1.03 MMOL/L (1.12-1.30)
[2016-06-29 05:43] LABS: % IMMATURE GRANULYOCYTES 0.6 % (0.0-1.1); ABSOLUTE IMMATURE GRANULOCYTES 0.03 10^3/uL (0.00-0.10); ADD DIFF? NO; ADD MORPH? NO; ADD SCAN? YES; FRAGMENT RBC FLAG 0 (0-99); HEMATOCRIT 45.9 % (40.0-51.0); LEFT SHIFT FLG 0 (0-99); LIPEMIA HEMOLYSIS FLAG 90 (0-99); MEAN CELL HEMOGLOBIN 36.5 pg (27.9-34.1); MEAN CELL HEMOGLOBIN CONCENTR. 34.9 g/dL (32.4-36.7); MEAN CELL VOLUME 104.8 fL (81.5-99.8); MEAN PLATELET VOLUME 10.2 fL (8.7-11.7); PLATELET CLUMPS FLAG 0 (0-99); PLATELET COUNT 127 10^3/uL (150-400); RED BLOOD CELL COUNT 4.38 10^6/uL (4.40-6.38); RED CELL DISTRIBUTION WIDTH 12.6 % (11.5-15.2)
[2016-06-29 05:46] LABS: ATYPICAL LYMPHOCYTE FLAG 300 (0-99)
[2016-06-29 05:52] LABS: ANION GAP 6 mEq/L (8-16); CALCIUM 8.3 mg/dL (8.5-10.4); CARBON DIOXIDE 36 mEq/l (22-31); CHLORIDE 97 mEq/L (97-110); CREATININE 0.8 mg/dL (0.7-1.3); GLOMERULAR FILTRATION RATE > 60; GLUCOSE 122 mg/dL (70-100); MAGNESIUM 1.8 mg/dL (1.6-2.3); POTASSIUM 4.1 mEq/L (3.5-5.2); SODIUM 139 mEq/L (134-144)
[2016-06-29 06:22] LABS: SCAN NEGATIVE
[2016-06-29] MEDS: TIOTROPIUM INHALER 18 MCG/DOSE 5 DOSE/MDI IH SCH (08:23)
[2016-06-29] MEDS: FLUTICASONE/SALMETER 100/50MCG DISKUS IH SCH (08:23)
[2016-06-29 08:30] VITALS: RESP 16; O2SAT 93
[2016-06-29] MEDS: ENOXAPARIN 40 MG/0.4 ML SYR SC SCH (08:39)
[2016-06-29 11:45] VITALS: BP 110/72; PULSE 59; TEMP 97.9
--- NOTE | 2016-06-29 13:28 | ECHO ---
[id number] + + [address] : : [place] [address] : : [phone] + + Adult Echocardiographic Report + -------+ :Name: DAREK ABEL FStudy Date: 06/29/2016 10:03 AM : : Hospital Admission Number: [id number] Locati on: 216: :: 1960 Gender: Male Height: 62 in : :Age: 56 yrs Race: WH Weight: 118 lb : :Reason For Study: Eval for Pulmonary Hypertension : : BSA: 1.5 meter s2 : :History: C-Diff, COPD, Renal Failure : + -------+ MMode/2D Measurements \T\ Calculations IVSd: 0.86 cm LVIDd: 4.8 cm FS: 37.8 % Ao root diam: 3.6 cm LVPWd: 0.88 cm LVIDs: 3.0 cm EDV(Teich): 105.2 ml ACS: 1.6 cm ESV(Teich): 33.8 ml EF(Teich): 67.9 % Normal Measurement Values: + + :LVIDd (3.5-5.7cm) IVSd (0.6-1.1cm) LVPWd (0.6-1.1cm) Aortic Root (2.0-3.7cm)Left Atrium (1.5-4.0cm): :LV Vol(d) (76-115ml) LV Vol(s) (29-48ml) Ejec Fraction (50-65%)PV Con (0.6- 1.2m/s) TV Con (0.4-1.0m/s) : :MV E Con (0.8-1.0m/s)MV A Con (0.3-1.0m/s)LVOT Con (0.7-1.2m/s) Asc Ao Con ( 0.9-1.8m/s) : + + Doppler Measurements \T\ Calculations MV E max con: Ao V2 max: LV V1 max: PA V2 max: 43.9 cm/sec 119.4 cm/sec 52.8 cm/sec 162.9 cm/sec MV A max con: Ao max P.7 mmHgLV V1 max PG: PA max P.2 cm/sec 1.1 mmHg 10.6 mmHg MV E/A: 0.75 PI end-d con: TR max con: 95.0 cm/sec 304.1 cm/sec TR max P.0 mmHg RAP systole: 5.0 mmHg RVSP(TR): 42.0 mmHg Left Ventricle The left ventricle is normal in size. There is normal left ventricular wall thickness. The left ventricular ejection fraction is normal. Ejection Fraction = 68%. There is Doppler evidence for diastolic dysfunction. The left ventricular wall motion is normal. Right Ventricle The right ventricle is normal size. Atria The left atrial size is normal. Right atrial size is normal. Mitral Valve The mitral valve is normal in structure and function. There is no mitral valve stenosis. There is no mitral regurgitation noted. Tricuspid Valve There is trace to mild tricuspid regurgitation. Right ventricular systolic pressure is 42mmHg. There is Doppler evidence for mild pulmonary hypertension. Aortic Valve The aortic valve is trileaflet. There is no aortic stenosis. There is no aortic insufficiency. Pulmonic Valve The pulmonic valve is normal in structure and function. There is no pulmonic valvular regurgitation. Great Vessels The aortic root is normal size. Pericardium/Pleural There is a fat pad seen. Conclusion A complete two-dimensional transthoracic echocardiogram was performed (2D, M-mode, Doppler and color flow Doppler). The left ventricular ejection fraction is normal. There is normal left ventricular wall thickness. Ejection Fraction = 68%. The left ventricular wall motion is normal. There is Doppler evidence for diastolic dysfunction. The right ventricle is normal size. The left atrial size is normal. Normal appearing valvular structures. There is no mitral regurgitation noted. There is trace to mild tricuspid regurgitation. There is Doppler evidence for mild pulmonary hypertension. Right ventricular systolic pressure is 42mmHg. The aortic root is normal size. There is a fat pad seen. Final Reading Physician: Gregorio Johnson signed on 06/29/2016 01:27 PM Ordering Physician: Chaparro Helms Performed By: Lloyd Bates, CS
--- NOTE | 2016-06-29 14:41 | PDIAF ---
- Diagnosis Diagnosis: acute renal failure Code Status: Do Not Resuscitate - Medication Management Discharge Medications: Medications to Continue on Transfer Aspirin EC [Aspirin EC 81 mg (*)] 81 mg PO DAILY 06/25/16 [Last Taken 06/20/16] ENALAPRIL MALEATE 5 mg PO DAILY 06/25/16 [Last Taken 06/20/16] Levothyroxine Sodium [Tirosint] 50 mcg PO DAILY 06/25/16 [Last Taken 06/20/16] SIMVASTATIN [Zocor] 20 mg PO HS 06/25/16 [Last Taken 06/20/16] Fluticasone/Salmeter 100/50Mcg [Advair 100/50 (*)] 1 puffs IH BID #1 disk [Last Taken Unknown] Tiotropium Inhaler [Spiriva Handihaler] 18 mcg IH DAILY #1 mdi 06/28/16 [Last Taken Unknown] Discharge Medications: Refer to the Discharge Home Medication list for PRN reason. - Orders Services needed: Home Care, Registered Nurse, Physical Therapy, Occupational Therapy Home Care Face to Face: I certify that this patient was under my care and that I had the required [id number] encounter meeting the encounter requirements on the discharge day. My findings support the fact that the patient is homebound as defined in CMS Chapter 7 Medicare Benefits Manual 30.1.1, The condition of the patient is such that there exists a normal inability to leave home and consequently, leaving home would require a considerable and taxing effort. - Follow Up Care Current Providers and Referrals: [facility],. [Primary Care Provider] - As per Instructions
--- NOTE | 2016-06-29 16:02 | GDS ---
Please refer to discharge summary dictated yesterday. Patient was leaving AMA at that time. He did consent to staying. Since then, we got an echocardiogram which did not show any pulmonary hyperten timothy and a chest x-ray, which was normal. He was able to start Spiriva and Advair for his COPD. He was also agreeable to getting home oxygen at home. Thus we will discharge him regularly today and he will get home health. /[id number]/MODL
== END 2016-06-29 16:48 | disposition home health service (06) | DRG 392 ==
LOC: F2W 16:51
PROVIDERS: ADMIT Family Medicine; ATTEND Internal Medicine
DX: R19.7 Diarrhea, unspecified (principal); R88.8 Abnormal findings in other body fluids and substances; N17.9 Acute kidney failure, unspecified; N18.4 Chronic kidney disease, stage 4 (severe); J96.11 Chronic respiratory failure with hypoxia; J44.9 Chronic obstructive pulmonary disease, unspecified; E87.6 Hypokalemia; E87.2 Acidosis; I27.2 Other secondary pulmonary hypertension; E03.9 Hypothyroidism, unspecified; D75.1 Secondary polycythemia; Z66 Do not resuscitate
CPT/HCPCS: 97116-GP; 97161-GP; 97165-GO; 97530-GP; 97535-GO; G0480; J0610; J1650; J3475